=== PATIENT | female | born 1955 | race Caucasian/White ===

== ENCOUNTER 2016-12-09 12:50 | Emergency (ER) | payer OTHER ==
[~2016-12-09] VITALS: Ht 162.6 cm; Wt 68.2 kg
[~2016-12-09 12:50] MED LIST: ADVIL,NUPRIN,M200 MG PO; AMBIEN10 MG PO; AMBIEN5 MG PO; ASPIR-TRIN325 M1 PO; ASPIRIN325 MG PO; ATIVAN0.5 MG PO; Bactrim,Septra DS 80 PO; CAL CARB FORTE PO; CEFTIN250 MG PO; CHILD ASPIRIN81 M1 PO; DELTA D3400 UNIT PO; DILANTIN100 MG PO; DURAGESIC25 MCG TD; DURAGESIC50 MCG TD; Dilantin PO; Duragesic TD; EFFEXOR XR150 MG PO; EPIPEN ADU0.3 MG/0.3 IM; FENTANYL1 EACH TD; FIORICET,ESG1 TABLET PO; FOLIC ACID1 MG PO; FOLVITE1 M1 PO; FORTAMET500 M1 PO; Folvite PO; G-FENESIN400 MG PO; GABAPENTIN300 MG PO; GABAPENTIN400 MG PO; GLIPIZIDE5 MG PO; GLUCOPHAGE1000 MG PO; GLUCOPHAGE500 MG PO; GLUTOSE 1537.5 GM PO; GUAIFENESIN400 MG PO; HALOPERIDOL0.5 MG PO; HALOPERIDOL1 MG PO; K-DUR20 MEQ PO; KEFLEX500 MG PO; KEPPRA1000 MG PO; KEPPRA250 M1 PO; KEPPRA250 MG PO; KEPPRA500 MG PO; KEPPRA750 MG PO; KLOR-CON20 MEQ PO; LANTUS 10100 UNITS/ SC; LANTUS100 UNIT/1 SQ; LEVEMIR FL100 UNITS/ PO; LEVEMIR FL100 UNITS/ SC; LEVETIRACETAM250 MG PO; LIDODERM700 MG TP; LOPRESSOR25 MG PO; LOTRISONE15 GM TP; MAG-OX400 M1 PO; MAG-OXIDE400 MG PO; METFORMIN HCL500 MG PO; METOPROLOL TART25 MG PO; MULTIVITAMIN1 EAC2 PO; MULTIVITAMINS1 EAC2 PO; NEURONTIN300 MG PO; NON-ASPIRIN PA325 MG PO; NOVOLOG MI100 UNIT/M SC; NOVOLOG PE100 UNITS/ SC; OMEPRAZOLE40 MG PO; ONE-A-DAY ESSE1 EAC1 PO; ORGAN-I NR200 MG PO; OXYCODONE HCL5 MG PO; OYST-CAL D, OS500 M1 PO; OYST-CAL-500500 MG PO; PERCOCET 5/31 TABLET PO; POTASSIUM20 MEQ/15 PO; PRILOSEC40 MG PO; PROMETHAZINE HC25 M1 PO; RANITIDINE HCL150 M1 PO; SEROQUEL100 MG PO; SEROQUEL50 MG PO; SERTRALINE HCL100 MG PO; SODIUM BICARBO325 M1 PO; SODIUM BICARBO325 MG PO; THERAGRAN1 TABLET PO; TOPROL XL6.25 MG PO; TRAMADOL HCL50 MG PO; TUMS500 MG PO; TYLENOL REGULA325 MG PO; Toprol XL PO; Tums PO; Tylenol Regular Stre PO; VANCOCIN HCL PO; VIMPAT50 MG PO; VITAMIN D400 UNIT PO; VITAMIN D50000 UNI1 PO; Vancocin Oral Soluti PO; Vitamin D, Drisdol PO; ZOLOFT100 M1 PO; ZOLOFT100 MG PO; ZOLOFT25 MG PO; ZOLOFT50 MG PO; Zoloft PO; [UNRECOGNIZED DRUG - OTHER] PO
[2016-12-09 14:34] LABS: ADD MIUA? YES; BILIRUBIN NEGATIVE; BLOOD SMALL; COLOR YELLOW ((YELLOW)); GLUCOSE (STRIP) NEGATIVE; KETONES NEGATIVE; LEUKOCYTES LARGE; NITRITE NEGATIVE; PROTEIN (STRIP) NEGATIVE; SPECIFIC GRAVITY 1.008 (1.000-1.030); UROBILINOGEN 0.2 MG/DL (0.2-1.0)
[2016-12-09 14:38] LABS: BACTERIA RARE /HPF; EPITHELIAL CELLS NONE SEEN /HPF; MUCUS NONE SEEN /LPF; RED BLOOD CELLS 0-5 /HPF (0-5); UCUL ADDED? NO; WHITE BLOOD CELLS 30-40 /HPF (0-5)
[2016-12-09 14:49] LABS: HEMATOCRIT 39.2 % (36.0-46.0); MCH 26.2 PG (29.0-34.0); MCHC 32.4 G/DL (30.0-36.0); MCV 80.8 FL (83-99); MEAN PLAT.VOLUME 8.8 uM^3 (9.5-12.4); PLATELET COUNT 342 K/uL (156-360); RBC DIS.WIDTH-CV 12.4 % (11.8-14.6); RBC DIS.WIDTH-SD 36.2 % (39-53); RED BLOOD COUNT 4.85 M/uL (3.80-5.20); WHITE BLOOD COUNT 9.2 K/uL (4.1-10.2)
[2016-12-09 14:57] LABS: CHLORIDE 99 mEq/L (99-109); SODIUM 135 mEq/L (136-147)
[2016-12-09 14:59] LABS: GLUCOSE 65 mg/dL (70-99)
[2016-12-09 15:01] LABS: ANION GAP 10 MEQ/L (2-14)
[2016-12-09 15:03] LABS: GFR ESTIMATE (CALCULATED) > 59 mL/min/
[2016-12-09 15:04] LABS: UREA NITROGEN (BUN) 7 mg/dL (9-23)
[2016-12-09 15:10] LABS: TROP-I INTERPRETATION NEGATIVE; TROPONIN-I < 0.01 ng/mL (0.0-0.30)
[2016-12-09] MEDS ORDERED: CEFTIN250 MG PO (15:25)
[2016-12-09 16:46] LABS: POINT-OF-CARE METER ID UU14100415
[2016-12-09 16:50] VITALS: BP 167/102
[2016-12-10 09:34] LABS: POINT-OF-CARE METER ID UU14100415
[2016-12-10 09:34] LABS: POINT-OF-CARE METER ID UU14100415
== END 2016-12-09 17:42 | disposition home or self-care (01) ==
LOC: EME 12:50
PROVIDERS: Emergency Medicine
DX: S00.83XA Contusion of other part of head, initial encounter (principal); W18.30XA Fall on same level, unspecified, initial encounter; Y92.129 Unspecified place in nursing home as the place of occurrence of the external cause; N39.0 Urinary tract infection, site not specified; E11.649 Type 2 diabetes mellitus with hypoglycemia without coma; Z79.4 Long term (current) use of insulin; I69.351 Hemiplegia and hemiparesis following cerebral infarction affecting right dominant side; I11.0 Hypertensive heart disease with heart failure; I50.9 Heart failure, unspecified; F03.90 Unspecified dementia, unspecified severity, without behavioral disturbance, psychotic disturbance, mood disturbance, and anxiety; F32.9 Major depressive disorder, single episode, unspecified; K21.9 Gastro-esophageal reflux disease without esophagitis; M25.552 Pain in left hip
CPT/HCPCS: 70450; 71020; 72125; 72170; 80048; 81003; 82948; 84484; 85027; 93005; 99281; 99283

== ENCOUNTER 2017-03-02 14:59 | Inpatient (IN) | payer OTHER ==
[~2017-03-02] VITALS: Ht 154.9 cm; Wt 69.0 kg
[2017-03-02 15:59] LABS: BASOPHIL COUNT 0.1 K/uL (0-0.1); EOSINOPHIL (%) 0.8 % (0-5); EOSINOPHIL COUNT 0.1 K/uL (0-0.3); IMMATURE GRANULOCYTE (%) 0.6 % (0.0-0.7); IMMATURE GRANULOCYTE COUNT 0.1 K/uL; INSTRUMENT ABS NEUTROPHIL CT 6.2 K/uL; MCH 26.6 PG (29.0-34.0); MCHC 33.7 G/DL (30.0-36.0); MCV 78.8 FL (83-99); MEAN PLAT.VOLUME 8.5 uM^3 (9.5-12.4); MONOCYTE (%) 4.6 % (3-12); MONOCYTE COUNT 0.4 K/uL (0-0.8); NEUTROPHIL COUNT 6.2 K/uL (1.8-6.4); PLATELET COUNT 335 K/uL (156-360); RBC DIS.WIDTH-CV 12.3 % (11.8-14.6); RED BLOOD COUNT 4.82 M/uL (3.80-5.20); WHITE BLOOD COUNT 8.7 K/uL (4.1-10.2)
[2017-03-02 16:09] LABS: CHLORIDE 89 mEq/L (99-109); SODIUM 126 mEq/L (136-147)
[2017-03-02 16:10] LABS: GLUCOSE 147 mg/dL (70-99)
[2017-03-02 16:12] LABS: ANION GAP 13 MEQ/L (2-14)
[2017-03-02 16:14] LABS: GFR ESTIMATE (CALCULATED) > 59 mL/min/
[2017-03-02 16:15] LABS: UREA NITROGEN (BUN) 7 mg/dL (9-23)
[2017-03-02] MEDS ORDERED: VIMPAT200 MG PO (18:59)
[2017-03-02] MEDS ORDERED: ZESTRIL5 MG PO (19:01)
[2017-03-02] MEDS ORDERED: MELATONIN1 MG PO (19:02)
[2017-03-02] MEDS ORDERED: ADVIL,NUPRIN,M200 MG PO (19:04)
[2017-03-02] MEDS ORDERED: CHILDREN'S ASPI81 M1 PO (19:44)
[2017-03-02] MEDS ORDERED: PRILOSEC20 MG PO (19:49)
[2017-03-02] MEDS ORDERED: KETOCONAZOLE60 GM TP (19:51)
[2017-03-03] VITALS (7 sets, daily range): BP systolic 150–183; BP diastolic 82–100
[2017-03-03 07:07] LABS: Estimated Average Glucose 146 mg/dL (70-123); HEMOGLOBIN A1c (GLYCOHEMOGLOB) 6.7 % HGB (Below 5.7)
[2017-03-03 07:08] LABS: HDL CHOLESTEROL 61 MG/DL (Desirable>=50); LDL CHOLESTEROL 105 mg/dL (Desirable<100); NON-HDL CHOLESTEROL 122 mg/dL (Desirable<160); TOTAL CHOLESTEROL 183 mg/dL (Desirable<200); TRIGLYCERIDES 83 MG/DL (Normal: <150)
[2017-03-03 07:32] LABS: POINT-OF-CARE METER ID UU13113717
[2017-03-03 12:12] LABS: POINT-OF-CARE METER ID UU13113717
[2017-03-03 15:48] LABS: HEMATOCRIT 37.1 % (36.0-46.0); MCH 26.6 PG (29.0-34.0); MCHC 33.4 G/DL (30.0-36.0); MCV 79.6 FL (83-99); MEAN PLAT.VOLUME 8.5 uM^3 (9.5-12.4); PLATELET COUNT 338 K/uL (156-360); RBC DIS.WIDTH-CV 12.4 % (11.8-14.6); RBC DIS.WIDTH-SD 35.7 % (39-53); RED BLOOD COUNT 4.66 M/uL (3.80-5.20)
[2017-03-03 16:10] LABS: ANION GAP 11 MEQ/L (2-14); CHLORIDE 95 MEQ/L (99-109); GFR ESTIMATE (CALCULATED) > 59 mL/min/; GLUCOSE 115 mg/dL (70-99); SAMPLE HEMOLYSIS CHECK 0; SAMPLE ICTERIC CHECK 0; SAMPLE LIPEMIA CHECK 0; SODIUM 128 MEQ/L (136-147); UREA NITROGEN (BUN) 10 mg/dL (9-23)
[2017-03-03 16:12] LABS: POTASSIUM 3.8 MEQ/L (3.7-5.4)
[2017-03-03 16:55] LABS: POINT-OF-CARE METER ID UU13113717
[2017-03-03 21:08] LABS: POINT-OF-CARE METER ID UU13113717
[2017-03-04 04:17] VITALS: BP 141/78
[2017-03-04 06:50] LABS: HEMATOCRIT 34.4 % (36.0-46.0); MCHC 32.8 G/DL (30.0-36.0); MCV 79.3 FL (83-99); MEAN PLAT.VOLUME 8.5 uM^3 (9.5-12.4); PLATELET COUNT 305 K/uL (156-360); RBC DIS.WIDTH-CV 12.4 % (11.8-14.6); RBC DIS.WIDTH-SD 35.4 % (39-53); RED BLOOD COUNT 4.34 M/uL (3.80-5.20); WHITE BLOOD COUNT 6.9 K/uL (4.1-10.2)
[2017-03-04 07:13] LABS: ANION GAP 9 MEQ/L (2-14); CHLORIDE 98 MEQ/L (99-109); GFR ESTIMATE (CALCULATED) > 59 mL/min/; POTASSIUM 3.8 MEQ/L (3.7-5.4); SAMPLE HEMOLYSIS CHECK 0; SAMPLE ICTERIC CHECK 0; SAMPLE LIPEMIA CHECK 0; SODIUM 130 MEQ/L (136-147); UREA NITROGEN (BUN) 9 mg/dL (9-23)
[2017-03-04 07:14] LABS: GLUCOSE 69 mg/dL (70-99)
[2017-03-04 08:10] VITALS: BP 179/85
[2017-03-04 08:16] LABS: POINT-OF-CARE METER ID UU13113717
[2017-03-04 12:42] LABS: POINT-OF-CARE METER ID UU13113717
== END 2017-03-04 15:02 | disposition home or self-care (01) | DRG 101 ==
LOC: EME 14:59 → 5SOUTH 18:07 → EDOF 18:07 → ENRESERV 19:14 → CANRESERV 19:14 → ENRESERV 19:22 → 5SOUTH 23:46
PROVIDERS: Emergency Medicine; Family Medicine
DX: G40.409 Other generalized epilepsy and epileptic syndromes, not intractable, without status epilepticus (principal); E11.9 Type 2 diabetes mellitus without complications; I11.0 Hypertensive heart disease with heart failure; I50.9 Heart failure, unspecified; E22.2 Syndrome of inappropriate secretion of antidiuretic hormone; N39.0 Urinary tract infection, site not specified; I69.351 Hemiplegia and hemiparesis following cerebral infarction affecting right dominant side; I69.320 Aphasia following cerebral infarction; I69.319 Unspecified symptoms and signs involving cognitive functions following cerebral infarction; F01.50 Vascular dementia, unspecified severity, without behavioral disturbance, psychotic disturbance, mood disturbance, and anxiety; F32.9 Major depressive disorder, single episode, unspecified; E78.5 Hyperlipidemia, unspecified; K21.9 Gastro-esophageal reflux disease without esophagitis; F10.10 Alcohol abuse, uncomplicated; Z79.4 Long term (current) use of insulin; Z79.82 Long term (current) use of aspirin; Z87.820 Personal history of traumatic brain injury; Z88.5 Allergy status to narcotic agent
CPT/HCPCS: 70450; 80048; 80061; 82948; 83036; 85025; 85027; 90686; 99281; 99285; J2060; J7030

== ENCOUNTER 2017-03-11 16:25 | Emergency (ER) | payer OTHER ==
[~2017-03-11] VITALS: Ht 170.2 cm; Wt 72.7 kg
[~2017-03-11 16:25] MED LIST changes: +CHILDREN'S ASPI81 M1 PO; +KETOCONAZOLE60 GM TP; +MELATONIN1 MG PO; +PRILOSEC20 MG PO; +VIMPAT200 MG PO; +ZESTRIL5 MG PO
[2017-03-11 17:17] LABS: HEMATOCRIT 37.2 % (36.0-46.0); MCH 26.3 PG (29.0-34.0); MCHC 33.1 G/DL (30.0-36.0); MCV 79.7 FL (83-99); MEAN PLAT.VOLUME 8.3 uM^3 (9.5-12.4); PLATELET COUNT 372 K/uL (156-360); RBC DIS.WIDTH-CV 12.5 % (11.8-14.6); RBC DIS.WIDTH-SD 35.9 % (39-53); RED BLOOD COUNT 4.67 M/uL (3.80-5.20); WHITE BLOOD COUNT 9.6 K/uL (4.1-10.2)
[2017-03-11 17:23] LABS: INTER. NORMALIZED RATIO 1.1; PROTHROMBIN TIME 11.6 SEC (10.2-12.9)
[2017-03-11 17:27] LABS: CHLORIDE 95 mEq/L (99-109); POTASSIUM 3.9 mEq/L (3.7-5.4); SODIUM 129 mEq/L (136-147)
[2017-03-11 17:29] LABS: GLUCOSE 45 mg/dL (70-99)
[2017-03-11 17:30] LABS: ANION GAP 10 MEQ/L (2-14)
[2017-03-11 17:33] LABS: GFR ESTIMATE (CALCULATED) > 59 mL/min/
[2017-03-11 17:34] LABS: UREA NITROGEN (BUN) 9 mg/dL (9-23)
[2017-03-11] MEDS ORDERED: KEFLEX500 MG PO (19:09)
[2017-03-11 20:40] VITALS: BP 154/92
== END 2017-03-11 20:40 | disposition home or self-care (01) ==
LOC: EME 16:25
PROVIDERS: Emergency Medicine
DX: L03.115 Cellulitis of right lower limb (principal); F03.90 Unspecified dementia, unspecified severity, without behavioral disturbance, psychotic disturbance, mood disturbance, and anxiety; I10 Essential (primary) hypertension; E11.9 Type 2 diabetes mellitus without complications; Z79.4 Long term (current) use of insulin; Z86.73 Personal history of transient ischemic attack (TIA), and cerebral infarction without residual deficits; Z79.82 Long term (current) use of aspirin
CPT/HCPCS: 73630; 80048; 83605; 85027; 85610; 87040; 93971; 99281; 99285